=== PATIENT | female | born 1960 | race African-American/Black ===

== ENCOUNTER 2017-04-20 09:34 | Emergency (ER) | payer BC, OTHER ==
[~2017-04-20] VITALS: Ht 157.5 cm; Wt 73.0 kg
[~2017-04-20 09:34] MED LIST: ALBUTEROL SULF8.5 GM INH; ANUSOL-HC25 MG RC; ASPIR 8181 MG ORAL; ATIVAN1 MG ORAL; ATIVAN1 MG PO; BUSPAR10 MG PO; COLACE100 MG PO; IBUPROFEN600 MG ORAL; LABETALOL H5 MG/1 M1 ORAL; LEVOTHYROXINE125 MCG ORAL; LISINOPRIL-HCT1 EACH PO; LISINOPRIL10 MG ORAL; PREDNISONE50 MG PO; REGLAN10 MG ORAL; SYNTHROID125 MCG PO
[2017-04-20 10:39] LABS: APPEARANCE,URINE CLEAR; KETONES,URINE NEGATIVE (NEGATIVE); LEUKOCYTE ESTERASE ,URINE NEGATIVE (NEGATIVE); NITRITE,URINE NEGATIVE (NEGATIVE); PH,URINE 5 (4.5-8.0); PROTEIN,URINE NEGATIVE (NEGATIVE); UROBILINOGEN,URINE NORMAL MG/DL (0.0-1.0)
[2017-04-20 10:49] LABS: BACTERIA,URINE OCCASIONAL /HPF; RBC,URINE 0-2 /HPF (0 - 2); SQUAMOUS EPITHELIAL CELL,UR OCCASIONAL /LPF (NONE/OCC); WBC,URINE 0-2 /HPF (0 - 2)
[2017-04-20] MEDS ORDERED: KEFLEX500 MG ORAL (11:15)
[2017-04-20] MEDS ORDERED: IBUPROFEN600 MG ORAL (11:15)
[2017-04-20 11:37] VITALS: BP 110/79
--- NOTE | 2017-04-20 15:35 | Emergency Room Report ---
History of Present Illness General Chief Complaint: Abdominal Pain Source: Patient Present Illness HPI 56-year-old female presents to ED complaining of lower abdominal pain with cramping. States symptoms started 2 days ago. Pain is a 5/10, nonradiating. Notes dysuria. Denies hematuria. Denies fevers or chills. Denies nausea or vomiting. Denies flank pain. No other aggravating or relieving factors. Denies any associated symptoms Allergies: Coded Allergies: No Known Allergies (Verified Allergy, Unknown, 07/19/10) Patient History Past Medical History: HTN, other Past Surgical History: none Pertinent Family History: none Social History: Denies: alcohol use, drug use, smoking Now: No Immunizations: UTD Reviewed Nursing Documentation: PMH: Agreed, PSxH: Agreed Nursing Documentation-PMH Past Medical History: No History, Except For Hx Cardiac Problems: No - hypothyroidism Hx Hypertension: Yes Hx Pacemaker: No Hx Asthma: No Hx COPD: No Hx Diabetes: No Hx Cancer: No Hx Gastrointestinal Problems: Yes - Hemorrhoid Hx Dialysis: No History Of Psychiatric Problem: No Hx Neurological Problems: No Hx Cerebrovascular Accident: No Hx Seizures: No Review of Systems All Other Systems: negative except mentioned in HPI Physical Exam Vital Signs Date Time Temp Pulse Resp B/P Pulse Ox O2 Delivery O2 Flow Rate FiO2 04/20/17 09:46 97.2 81 16 131/87 97 Room Air Sp02 EP Interpretation: reviewed, normal General Appearance: no apparent distress, alert, GCS 15, non-toxic Head: normocephalic, atraumatic Eyes: bilateral eye PERRL, bilateral eye normal inspection ENT: hearing grossly normal, normal pharynx, no angioedema, normal voice Neck: full range of motion, supple/symm/no masses Respiratory: chest non-tender, lungs clear, normal breath sounds, speaking full sentences Cardiovascular #1: regular rate, rhythm, no edema Cardiovascular #2: 2+ carotid (R), 2+ carotid (L), 2+ radial (R), 2+ radial (L) , 2+ dorsalis pedis (R), 2+ dorsalis pedis (L) Gastrointestinal: normal bowel sounds, non tender, soft, non-distended, no guarding, no rebound Rectal: deferred Genitourinary: normal inspection, no CVA tenderness Musculoskeletal: back normal, gait/station normal, normal range of motion, non- tender Neurologic: alert, oriented x3, responsive, motor strength/tone normal, sensory intact, speech normal Psychiatric: judgement/insight normal, memory normal, mood/affect normal, no suicidal/homicidal ideation Reflexes: 3+ bicep (R), 3+ bicep (L), 3+ tricep (R), 3+ tricep (L), 3+ knee (R) , 3+ knee (L) Skin: normal color, no rash, warm/dry, well hydrated Lymphatic: no adenopathy Medical Decision Making Diagnostic Impression: Primary Impression: UTI (urinary tract infection) Qualified Codes: N39.0 - Urinary tract infection, site not specified ER Course Hospital Course 56-year-old female presents to ED complaining of dysuria with cramping suprapubic pain. Differential diagnoses include: UTI, cystitis, pyelonephritis Clinical course Patient placed on stretcher. After initial history and physical I ordered UA UA + bacteria Diagnosis - UTI Stable and discharged home with prescriptions for Rx Keflex. Instructed to followup with PMD. Return to ED if symptoms recur or worsen Labs Test 04/20/17 10:04 Urine Color Pale yellow Urine Appearance Clear Urine pH 5 (4.5-8.0) Urine Specific [place] 1.015 (1.005-1.035) Urine Protein Negative (NEGATIVE) Urine Glucose (UA) Negative (NEGATIVE) Urine Ketones Negative (NEGATIVE) Urine Occult Blood 1+ (NEGATIVE) Urine Nitrite Negative (NEGATIVE) Urine Bilirubin Negative (NEGATIVE) Urine Urobilinogen Normal MG/DL (0.0-1.0) Urine Leukocyte Esterase Negative (NEGATIVE) Urine RBC 0-2 /HPF (0 - 2) Urine WBC 0-2 /HPF (0 - 2) Urine Squamous Epithelial Cells Occasional /LPF Urine Bacteria Occasional /HPF (NONE) Last Vital Signs Date Time Temp Pulse Resp B/P Pulse Ox O2 Delivery O2 Flow Rate FiO2 04/20/17 11:37 97.2 55 17 110/79 100 Room Air Status: improved Disposition: HOME, SELF-CARE Condition: Stable Scripts Ibuprofen* (MOTRIN*) 600 Mg Tablet 600 MG ORAL Q8H Y for For Pain, #30 TAB 0 Refills Prov: BEAR BRASHER M.D. 04/20/17 Cephalexin* (KEFLEX*) 500 Mg Capsule 500 MG ORAL Q6H, #28 CAP 0 Refills Prov: BEAR BRASHER M.D. 04/20/17 Referrals: [facility] PHYSICIAN (PCP) Patient Instructions: Dysuria BEAR BRASHER M.D. April 20, 2017 15:35
== END 2017-04-20 11:39 | disposition home or self-care (01) ==
LOC: EMR 10:58
DX: N39.0 Urinary tract infection, site not specified (principal); I10 Essential (primary) hypertension
CPT/HCPCS: 81003; 99284

== ENCOUNTER 2017-05-12 21:17 | Emergency (ER) | payer BC ==
[~2017-05-12] VITALS: Ht 157.5 cm; Wt 74.4 kg
[~2017-05-12 21:17] MED LIST changes: +KEFLEX500 MG ORAL
--- NOTE | 2017-05-12 22:01 | Emergency Room Report ---
History of Present Illness General Chief Complaint: Lower Extremity Injury Source: Patient Present Illness HPI Patient presents with complaints of bruising to her right anterior lower leg Patient reports that on they had gone fishing on Saturday she had noticed a bruise Denies any fevers or chills denies any pain denies any expanding of the bruise She feels that the middle area of the bruise has a different color now Denies any swelling Denies any calf pain Allergies: Coded Allergies: No Known Allergies (Verified Allergy, Unknown, 07/19/10) Patient History Past Medical History: see triage record Pertinent Family History: none Reviewed Nursing Documentation: PMH: Agreed, PSxH: Agreed Nursing Documentation-PMH Hx Cardiac Problems: No - hypothyroidism Hx Hypertension: Yes Hx Pacemaker: No Hx Asthma: No Hx COPD: No Hx Diabetes: No Hx Cancer: No Hx Gastrointestinal Problems: Yes - Hemorrhoid Hx Dialysis: No Hx Neurological Problems: No Hx Cerebrovascular Accident: No Hx Seizures: No Review of Systems All Other Systems: negative except mentioned in HPI Physical Exam Vital Signs Date Time Temp Pulse Resp B/P Pulse Ox O2 Delivery O2 Flow Rate FiO2 05/12/17 21:22 97.9 81 16 137/87 97 Room Air Sp02 EP Interpretation: reviewed, normal General Appearance: well appearing, no apparent distress Head: normocephalic, atraumatic Eyes: bilateral eye EOMI, bilateral eye PERRL ENT: hearing grossly normal, normal pharynx, TMs + canals normal, uvula midline Neck: full range of motion, supple, no meningismus, no bony tend Respiratory: lungs clear, normal breath sounds, no rhonchi, no respiratory distress, no retraction, no accessory muscle use Cardiovascular #1: normal peripheral pulses, regular rate, rhythm, no edema, no gallop, no JVD, no murmur Gastrointestinal: normal bowel sounds, non tender, soft, no mass, no organomegaly, non-distended, no guarding, no hernia, no pulsatile mass, no rebound Genitourinary: no CVA tenderness Musculoskeletal: normal inspection Neurologic: oriented x3, responsive, 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 Patient does have operable varicose veins. There is no fluctuance or palpable mass to the hematoma Lymphatic: normal inspection, no adenopathy Medical Decision Making Diagnostic Impression: Primary Impression: hematoma ER Course Several differentials are considered including but not limited to DVT, cellulitis Patient's findings appear to be in line With improving hematoma Is also consideration for, likely varicose vein rupture Patient otherwise stable for close outpatient followup Chest X-Ray Diagnostic Results Chest X-Ray Ordered: No Last Vital Signs Date Time Temp Pulse Resp B/P Pulse Ox O2 Delivery O2 Flow Rate FiO2 05/12/17 21:22 97.9 81 16 137/87 97 Room Air Status: unchanged Disposition: HOME, SELF-CARE Condition: Stable Referrals: NON PHYSICIAN (PCP) Patient Instructions: Hematoma, [id number] Additional Instructions: Patient is provided with the discharge instructions notified to follow up with primary doctor in the next 2-3 days otherwise return to the er with any worsening symptoms. Please note that this report is being documented using DRAGON technology. This can lead to erroneous entry secondary to incorrect interpretation by the dictating instrument. TRISHA SABILLON D.O. May 12, 2017 22:01
[2017-05-12 22:10] VITALS: BP 137/87
== END 2017-05-12 22:10 | disposition home or self-care (01) ==
LOC: EMR 21:47
DX: S80.11XA Contusion of right lower leg, initial encounter (principal); I10 Essential (primary) hypertension; I83.90 Asymptomatic varicose veins of unspecified lower extremity; X58.XXXA Exposure to other specified factors, initial encounter; Y93.9 Activity, unspecified; Y92.9 Unspecified place or not applicable
CPT/HCPCS: 99282

== ENCOUNTER 2017-06-07 22:46 | Emergency (ER) | payer BC ==
[~2017-06-07] VITALS: Ht 157.5 cm; Wt 73.9 kg
[2017-06-07 23:30] VITALS: BP 127/85
[2017-06-07] MEDS ORDERED: ANUSOL-HC25 MG RECTAL (23:51)
--- NOTE | 2017-06-07 23:51 | Emergency Room Report ---
History of Present Illness General Chief Complaint: Gastrointestinal Bleed Source: Patient Present Illness HPI This is a 57-year-old female with history of anxiety and hypertension. Patient presents with high blood pressure and rectal bleeding. This evening she said that her blood pressure with systolic in the 180. She took her metoprolol. She said that whenever her blood pressure is high she felt she needed to have a bowel movement. When she had a bowel movement blood gushed out. She has a history of hemorrhoid and with bleeding before. Usually small. She had a colonoscopy done less than 3 years ago which showed internal and external hemorrhoids. There were 2 polyps which were benign. No pain. [place] better now. She was anxious initially. Allergies: Coded Allergies: No Known Allergies (Verified Allergy, Unknown, 07/19/10) Patient History Past Medical History: see triage record, old chart reviewed, HTN Past Surgical History: other Pertinent Family History: none Social History: Denies: smoking Last Menstrual Period: NOT ANYMORE Now: No Immunizations: other Reviewed Nursing Documentation: PMH: Agreed, PSxH: Agreed Nursing Documentation-PMH Hx Cardiac Problems: No - hypothyroidism Hx Hypertension: Yes Hx Pacemaker: No Hx Asthma: No Hx COPD: No Hx Diabetes: No Hx Dialysis: No Hx Neurological Problems: No Hx Cerebrovascular Accident: No Hx Seizures: No Review of Systems Eye: Denies: blurred vision, eye pain ENT: Denies: ear pain, nose congestion, throat swelling Respiratory: Denies: cough, shortness of breath Cardiovascular: Denies: chest pain, palpitations Gastrointestinal: Denies: abdominal pain, diarrhea, nausea, vomiting Musculoskeletal: Denies: back pain, joint pain Skin: Denies: rash Neurological: Denies: headache, numbness Endocrine: Denies: increased thirst, increased urine Hematologic/Lymphatic: Denies: easy bruising All Other Systems: negative except mentioned in HPI Physical Exam Vital Signs Date Time Temp Pulse Resp B/P Pulse Ox O2 Delivery O2 Flow Rate FiO2 06/07/17 23:07 98.1 75 18 152/109 98 Room Air vitals with HTN Sp02 EP Interpretation: reviewed, normal General Appearance: well appearing, no apparent distress, alert Head: normocephalic, atraumatic Eyes: bilateral eye EOMI, bilateral eye PERRL ENT: hearing grossly normal, normal pharynx Neck: full range of motion, supple, no meningismus Respiratory: chest non-tender, lungs clear, normal breath sounds Cardiovascular #1: regular rate, rhythm, no murmur Gastrointestinal: normal bowel sounds, non tender, no mass, no organomegaly, no bruit, non-distended Rectal: hemorrhoids - bluish dislocation. no thrombosis or active bleeding Musculoskeletal: back normal, gait/station normal, normal range of motion Psychiatric: mood/affect normal Skin: warm/dry Medical Decision Making Diagnostic Impression: Primary Impression: Rectal bleeding Additional Impression: External hemorrhoid, bleeding ER Course Patient presents with bleeding hemorrhoid. I see no evidence of thrombosis. I see no need for excision. Blood pressures normalized now. No evidence of end organ damage. Unlikely to be rectal cancer since she had recent colonoscopy. We'll discharge home. Last Vital Signs Date Time Temp Pulse Resp B/P Pulse Ox O2 Delivery O2 Flow Rate FiO2 06/07/17 23:07 98.1 75 18 152/109 98 Room Air Status: improved Disposition: HOME, SELF-CARE Condition: Stable Scripts Hydrocortisone Acetate* (ANUSOL-HC*) 25 Mg Supp.rect 1 SUPP RECTAL TWICE A DAY, #10 SUPP Prov: SHEN ROMERO M.D. 06/07/17 Additional Instructions: Follow up with your doctor in 7 days. You may need a referral to see a surgeon if continue with bleeding. SHEN ROMERO M.D. Jun 07, 2017 23:51
[2017-06-08] VITALS: BP 101/70
== END 2017-06-08 | disposition home or self-care (01) ==
LOC: EMR 23:46
DX: K64.4 Residual hemorrhoidal skin tags (principal); I10 Essential (primary) hypertension
CPT/HCPCS: 99283

== ENCOUNTER 2017-06-16 22:31 | Emergency (ER) | payer BC ==
[~2017-06-16] VITALS: Ht 165.1 cm; Wt 74.8 kg
[~2017-06-16 22:31] MED LIST changes: +ANUSOL-HC25 MG RECTAL
[2017-06-16 23:45] LABS: BASOPHILS % (AUTO) 1.2 % (0.0-2.0); LYMPHOCYTES % (AUTO) 25.3 % (20.0-45.0); MEAN CORPUSCULAR HEMOGLOBIN 31.7 PG (27.0-31.0); MEAN CORPUSCULAR HGB CONC 35.1 G/DL (32.0-36.0); MEAN CORPUSCULAR VOLUME 90 FL (80-99); MEAN PLATELET VOLUME 6.6 FL (6.5-10.1); MONOCYTES % (AUTO) 9.1 % (1.0-10.0); NEUTROPHILS % (AUTO) 62.4 % (45.0-75.0); PLATELET COUNT 225 K/UL (150-450); RED BLOOD COUNT 4.72 M/UL (4.20-5.40); WHITE BLOOD COUNT 5.1 K/UL (4.8-10.8)
[2017-06-17 00:04] LABS: ALANINE AMINOTRANSFERASE 19 U/L (3-33); ALBUMIN/GLOBULIN RATIO 1.7 (1.0-2.7); ANION GAP 11 (5-15); ASPARTATE AMINO TRANSFERASE 22 U/L (5-40); CALCIUM 9.2 mg/dL (8.6-10.2); CARBON DIOXIDE 26 mEQ/L (20-30); CHLORIDE 103 mEQ/L (98-107); GLOMERULAR FILTRATION RATE > 60 mL/min (>60); HEMOLYSIS 14; SODIUM 140 mEQ/L (135-145); TOTAL PROTEIN 6.4 g/dL (6.6-8.7)
[2017-06-17 00:06] LABS: TROPONIN I < 0.30 ng/mL (<=0.30)
[2017-06-17 00:15] LABS: CKMB 1.6 ng/mL (< 3.8)
[2017-06-17 00:59] VITALS: BP 131/79
[2017-06-17 01:00] VITALS: BP 131/79
--- NOTE | 2017-06-17 01:24 | Emergency Room Report ---
History of Present Illness General Chief Complaint: Headache Source: Patient Present Illness HPI 57-year-old female presents to ED for evaluation. Patient states that she is having a headache which started last night. Pain is frontal, 3/10, throbbing, nonradiating. Patient states whenever her blood pressure is high she has a headache. Patient has history of hypertension and states that her blood pressure is been more elevated than usual recently. Was told by her PMD that her blood pressure remains high after taking her blood pressure medications that she should take a dose of metoprolol. Patient took the metoprolol tonight. States that her blood pressure was initially 170/120 approximately. In triage blood pressure is overall improved. Denies any chest pain or shortness of breath. Denies neck stiffness. Aggravating or leading factors. Denies any other associated symptoms Allergies: Coded Allergies: No Known Allergies (Verified Allergy, Unknown, 07/19/10) Patient History Past Medical History: HTN Past Surgical History: none Pertinent Family History: none Social History: Denies: alcohol use, drug use, smoking Now: No Immunizations: UTD Reviewed Nursing Documentation: PMH: Agreed, PSxH: Agreed Nursing Documentation-PMH Hx Cardiac Problems: No Hx Hypertension: Yes Hx Pacemaker: No Hx Asthma: No Hx COPD: No Hx Diabetes: No Hx Cancer: No Hx Gastrointestinal Problems: No Hx Dialysis: No History Of Psychiatric Problem: No Hx Neurological Problems: No Hx Cerebrovascular Accident: No Hx Seizures: No Review of Systems All Other Systems: negative except mentioned in HPI Physical Exam Vital Signs Date Time Temp Pulse Resp B/P Pulse Ox O2 Delivery O2 Flow Rate FiO2 06/16/17 22:52 97.9 78 16 150/106 98 Room Air Sp02 EP Interpretation: reviewed, normal General Appearance: no apparent distress, alert, GCS 15, non-toxic Head: normocephalic, atraumatic Eyes: bilateral eye PERRL, bilateral eye normal inspection ENT: hearing grossly normal, normal pharynx, no angioedema, normal voice Neck: full range of motion, supple/symm/no masses Respiratory: chest non-tender, lungs clear, normal breath sounds, speaking full sentences Cardiovascular #1: regular rate, rhythm, no edema Cardiovascular #2: 2+ carotid (R), 2+ carotid (L), 2+ radial (R), 2+ radial (L) , 2+ dorsalis pedis (R), 2+ dorsalis pedis (L) Gastrointestinal: normal bowel sounds, non tender, soft, non-distended, no guarding, no rebound Rectal: deferred Genitourinary: normal inspection, no CVA tenderness Musculoskeletal: back normal, gait/station normal, normal range of motion, non- tender Neurologic: alert, oriented x3, responsive, motor strength/tone normal, sensory intact, speech normal Psychiatric: judgement/insight normal, memory normal, mood/affect normal, no suicidal/homicidal ideation Reflexes: 3+ bicep (R), 3+ bicep (L), 3+ tricep (R), 3+ tricep (L), 3+ knee (R) , 3+ knee (L) Skin: normal color, no rash, warm/dry, well hydrated Lymphatic: no adenopathy Medical Decision Making Diagnostic Impression: Primary Impression: Hypertension Qualified Codes: I10 - Essential (primary) hypertension Additional Impression: Headache Qualified Codes: R51 - Headache ER Course Hospital Course 57-year-old female presents ED complaining of elevated BP, c/o headache Differential diagnoses include: hypertensive urgency, hypertensive emergency, arrythmia, AZ/ACS Clinical course Patient placed on stretcher. After initial history and physical I ordered labs , EKG, chest x-ray. labs reviewed- all electrolytes normal, troponins negative, no leukocytosis, hemoglobin/hematocrit stable EKG - sinus bradycardia, no acute changes interpreted by me CT Head - no acute process Upon reassessment patient's BP has reduced on its own without intervention. I. I feel this is a highly complex case requiring extensive working including EKG/Rhythm strip, Xray/CT/US, Blood/urine lab work, repeat exams while in ED, and administration of strong opiates/narcotics for pain control, admission to hospital or close patient follow up. Diagnosis - hypertension, headache Stable and discharged to home. take meds as directed. Instructed to followup with PMD. Return to ED if symptoms recur or worsen Labs Test 06/16/17 23:35 White Blood Count 5.1 K/UL (4.8-10.8) Red Blood Count 4.72 M/UL (4.20-5.40) Hemoglobin 14.9 G/DL (12.0-16.0) Hematocrit 42.6 % (37.0-47.0) Mean Corpuscular Volume 90 FL (80-99) Mean Corpuscular Hemoglobin 31.7 PG (27.0-31.0) Mean Corpuscular Hemoglobin Concent 35.1 G/DL (32.0-36.0) Red Cell Distribution Width 11.0 % (11.6-14.8) Platelet Count 225 K/UL (150-450) Mean Platelet Volume 6.6 FL (6.5-10.1) Neutrophils (%) (Auto) 62.4 % (45.0-75.0) Lymphocytes (%) (Auto) 25.3 % (20.0-45.0) Monocytes (%) (Auto) 9.1 % (1.0-10.0) Eosinophils (%) (Auto) 2.0 % (0.0-3.0) Basophils (%) (Auto) 1.2 % (0.0-2.0) Sodium Level 140 mEQ/L (135-145) Potassium Level 4.0 mEQ/L (3.4-4.9) Chloride Level 103 mEQ/L (98-107) Carbon Dioxide Level 26 mEQ/L (20-30) Anion Gap 11 (5-15) Blood Urea Nitrogen 19 mg/dL (7-23) Creatinine 1.0 mg/dL (0.5-0.9) Estimat Glomerular Filtration Rate > 60 mL/min (>60) Glucose Level 109 mg/dL (74-106) Calcium Level 9.2 mg/dL (8.6-10.2) Total Bilirubin 0.2 mg/dL (0.0-1.2) Aspartate Amino Transf (AST/SGOT) 22 U/L (5-40) Alanine Aminotransferase (ALT/SGPT) 19 U/L (3-33) Alkaline Phosphatase 82 U/L (35-104) Total Creatine Kinase 81 U/L (26-140) Creatine Kinase MB 1.6 ng/mL (< 3.8) Creatine Kinase MB Relative Index 1.9 Troponin I < 0.30 ng/mL (<=0.30) Total Protein 6.4 g/dL (6.6-8.7) Albumin 4.1 g/dL (3.5-5.2) Globulin 2.3 g/dL Albumin/Globulin Ratio 1.7 (1.0-2.7) EKG Diagnostic Results Rate: bradycardiac Rhythm: NSR ST Segments: no acute changes ASA given to the pt in ED: No Rhythm Strip Diag. Results EP Interpretation: yes Rhythm: NSR, no PVC's, no ectopy CT/MRI/US Diagnostic Results CT/MRI/US Diagnostic Results : Imaging Test Ordered: CT Head Impression no acute process Last Vital Signs Date Time Temp Pulse Resp B/P Pulse Ox O2 Delivery O2 Flow Rate FiO2 06/17/17 01:00 97.9 79 16 131/79 98 Room Air Status: improved Disposition: HOME, SELF-CARE Condition: Stable Patient Instructions: Managing Your High Blood Pressure BEAR BRASHER M.D. Jun 17, 2017 01:24
--- NOTE | 2017-06-17 09:57 | Diagnostic Imaging Report ---
Indication: Headache Technique: Contiguous 5 mm thick transaxial imaging of the head obtained in a Siemens Sensation [address] scanner. Soft tissue and bone windows generated. Total Dose length Product (DLP): [address] Dose Index Volume (CTDIvol): 70.38 mGy Comparison: 07/21/11 Findings: The size and configuration of the cortical sulci, basal cisterns, and ventricles are within normal limits for age. There is no mass effect, midline shift, or edema identified. There is no evidence of acute hemorrhage or abnormal intra-axial or extra-axial fluid collections. The bones and soft tissues are unremarkable. Impression: No mass effect, edema or acute bleed. The CT scanner at [facility] is accredited by the [employer] and the scans are performed using dose optimization techniques as appropriate to a performed exam including Automatic Exposure control.
--- NOTE | 2017-06-19 08:40 | Cardiology Report ---
APPROVED REPORT EKG Measurement Heart [id number] Sinus bradycardia Otherwise normal ECG
== END 2017-06-17 01:00 | disposition home or self-care (01) ==
LOC: EMR 23:04
DX: R51 Headache (principal); I10 Essential (primary) hypertension
CPT/HCPCS: 36415; 70450; 80053; 82550; 82553; 84484; 85025; 93005; 96374; 99284; J7040

== ENCOUNTER 2017-11-24 14:44 | Emergency (ER) | payer BC ==
[~2017-11-24] VITALS: Ht 157.5 cm; Wt 71.2 kg
[2017-11-24] MEDS ORDERED: Norco 5mg/325mg tab ORAL ONE (16:00)
[2017-11-24] MEDS ORDERED: IBUPROFEN600 MG ORAL (16:21)
[2017-11-24] MEDS ORDERED: CLINDAMYCIN HC300 MG ORAL (16:21)
--- NOTE | 2017-11-24 16:21 | Emergency Room Report ---
History of Present Illness General Chief Complaint: Pain Source: Patient Present Illness HPI 57 Yo Female presents to the ED c/o pain, swelling, and erythema of RMF x 3 days after having acrylic nails placed. pt. immediately removed acrylic nail from affected finger the following day however symptoms continue to progress. denies finger pad tenderness, denies trauma or fall. Denies CP, Palpitations, LOC, AMS, dizziness, Changes in Vision, Sensation, paresthesias, or a sudden severe headache. Allergies: Coded Allergies: No Known Allergies (Verified Allergy, Unknown, 07/19/10) Patient History Past Medical History: see triage record Past Surgical History: none Pertinent Family History: none Immunizations: UTD Reviewed Nursing Documentation: PMH: Agreed, PSxH: Agreed Nursing Documentation-PMH Hx Cardiac Problems: No Hx Hypertension: Yes Hx Pacemaker: No Hx Asthma: No Hx COPD: No Hx Cancer: No Hx Gastrointestinal Problems: No Hx Dialysis: No Hx Neurological Problems: No Hx Cerebrovascular Accident: No Hx Seizures: No Review of Systems All Other Systems: negative except mentioned in HPI Physical Exam Vital Signs Date Time Temp Pulse Resp B/P (MAP) Pulse Ox O2 Delivery O2 Flow Rate FiO2 11/24/17 15:11 98.1 67 16 118/73 100 Room Air Sp02 EP Interpretation: reviewed, normal General Appearance: no apparent distress, alert, GCS 15, non-toxic Head: normocephalic, atraumatic Eyes: bilateral eye normal inspection, bilateral eye PERRL ENT: hearing grossly normal, normal voice Neck: full range of motion Respiratory: chest non-tender, lungs clear, normal breath sounds, speaking full sentences Cardiovascular #1: regular rate, rhythm, normal capillary refill Musculoskeletal: back normal, gait/station normal, normal range of motion, tender - TTP with erythema and increased temperature to palpation to the cuticle line of the RMF, swelling noted , no finger pad tenderness, FROM of finger. Neurologic: alert, oriented x3, responsive, motor strength/tone normal, sensory intact, speech normal Skin: no rash, warm/dry, well hydrated, other - erythema and increased temperature to palpation to the cuticle line of the RMF, swelling noted Procedures Incision and Drainage Incision and Drainage : Consent: Verbal Site: RMF Blade Size: 25g needle I & D Procedure: betadine prep, sterile drapes applied Wound Location: upper extremity - RMF Wound's Depth, Shape: superficial Wound Length (cm): 0 Wound Explored: contaminated - purulent drainage is expressed ( mild) Splint Applied?: No Sling Applied?: No Patient Tolerated: Well Complications: None Medical Decision Making PA Attestation Dr. Gomez is my supervising Physician whom patient management has been discussed with. Diagnostic Impression: Primary Impression: Paronychia of finger Qualified Codes: L03.011 - Cellulitis of right finger Additional Impression: Cellulitis Qualified Codes: L03.113 - Cellulitis of right upper limb ER Course 57 Yo Female presents to the ED c/o pain, swelling, and erythema of RMF x 3 days after having acrylic nails placed. pt. immediately removed acrylic nail from affected finger the following day however symptoms continue to progress. denies finger pad tenderness, denies trauma or fall. Denies CP, Palpitations, LOC, AMS, dizziness, Changes in Vision, Sensation, paresthesias, or a sudden severe headache. Pt. presents to the ED c/o pain, swelling, and erythema of RMF x 3 days. Ddx considered but are not limited to cellulitis, paronychia, eponychia, ingrown toe nail, fracture, d/L, gout Vital signs: are WNL, pt. is afebrile H&PE are most consistent with left middle finger paronychia ORDERS: none required at this time, the diagnosis is clinical ED INTERVENTIONS: - verbal consent was received . - lesion was cleaned with betadine prep. - Small incision using a sterile 25g needle to drain the paronychia. pt. tolerated well without complication. - sterile band-aid was then applied afterward. - will d/c pt. with PO abx. DISCHARGE: At this time pt. is stable for d/c to home. Will provide printed patient care instructions, and any necessary prescriptions. Care plan and follow up instructions have been discussed with the patient prior to discharge. Last Vital Signs Date Time Temp Pulse Resp B/P (MAP) Pulse Ox O2 Delivery O2 Flow Rate FiO2 11/24/17 15:11 98.1 67 16 118/73 100 Room Air Disposition: HOME, SELF-CARE Condition: Stable Scripts Bacitracin/Polymyxin B Sulfate (BACITRACIN-POLYMYXIN OINTMENT) 28.35 Gm Oint...g. 1 APPLIC TP BID, #28.3 GM Prov: Leah Cardoso 11/24/17 Ibuprofen* (MOTRIN*) 600 Mg Tablet 600 MG ORAL THREE TIMES A DAY, #30 TAB 0 Refills Prov: Leah Cardoso 11/24/17 Clindamycin Hcl (CLINDAMYCIN HCL) 300 Mg Capsule 300 MG ORAL FOUR TIMES A DAY for 7 Days, #28 CAP Prov: Leah Cardoso 11/24/17 Departure Forms: Return to Work Return to Work Date: Nov 27, 2017 Work Restrictions: None Return to Full Activity: Nov 27, 2017 Patient Instructions: Cellulitis, [id number], Paronychia Additional Instructions: Take medications as directed. Warm water soaks in salt water 6 times daily for 3 days. Follow up with a Primary Care Provider in 3-5 days, even if your symptoms have resolved. --Please review list of primary care clinics, if you do not already have a primary care provider Return sooner to ED if new symptoms occur, or current symptoms become worse. - Please note that this Emergency Department Report was dictated using [employer] technology software, occasionally this can lead to erroneous entry secondary to interpretation by the dictation equipment. Leah Cardoso Nov 24, 2017 16:21
[2017-11-24] MEDS ORDERED: BACITRACIN-P28.35 GM TP (16:22)
[2017-11-24 16:27] VITALS: BP 118/73
[2017-11-24 16:28] VITALS: BP 118/73
== END 2017-11-24 16:30 | disposition home or self-care (01) ==
LOC: EMR 15:42
DX: L03.011 Cellulitis of right finger (principal); L03.113 Cellulitis of right upper limb; I10 Essential (primary) hypertension
CPT/HCPCS: 10060; 99283

== ENCOUNTER 2018-06-02 14:59 | Emergency (ER) | payer BC ==
[~2018-06-02] VITALS: Ht 157.5 cm; Wt 68.9 kg
[~2018-06-02 14:59] MED LIST changes: +BACITRACIN-P28.35 GM TP; +CLINDAMYCIN HC300 MG ORAL
--- NOTE | 2018-06-02 15:37 | Emergency Room Report ---
History of Present Illness General Chief Complaint: Abdominal Pain Source: Patient, Medical Record Present Illness HPI 57-year-old female patient presents ER complaining of abdominal pain with nausea and vomiting 1 day. Reports that she woke up this morning with pain in her stomach and is vomited 3 times. Denies eating prior to throwing up. Reports she has been constipated for the past 3 days, states that she was able to have a small "pimple" during defecation this morning. Denies dysuria, hematuria. Denies history of DE. Reports history of hypothyroidism, currently taking medications. Denies history of GERD or acid reflux. Denies radiation of pain to back. Denies recent travel. denies contacts with similar symptoms. 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 Allergies: Coded Allergies: No Known Allergies (Verified Allergy, Unknown, 07/19/10) Patient History Past Medical History: see triage record Reviewed Nursing Documentation: PMH: Agreed; PSxH: Agreed Nursing Documentation-PMH Past Medical History: No History, Except For Hx Cardiac Problems: No Hx Hypertension: Yes Hx Pacemaker: No Hx Asthma: No Hx COPD: No Hx Cancer: No Hx Gastrointestinal Problems: No Hx Dialysis: No Hx Neurological Problems: No Hx Cerebrovascular Accident: No Hx Seizures: No Review of Systems All Other Systems: negative except mentioned in HPI Physical Exam Vital Signs Date Time Temp Pulse Resp B/P (MAP) Pulse Ox O2 Delivery O2 Flow Rate FiO2 06/02/18 15:10 98.7 101 18 132/92 96 Room Air 98.8 Sp02 EP Interpretation: reviewed, normal General Appearance: well appearing, no apparent distress, alert, GCS 15, non- toxic Head: normocephalic, atraumatic Eyes: bilateral eye normal inspection, bilateral eye PERRL ENT: hearing grossly normal, normal pharynx, no angioedema, normal voice, uvula midline, moist mucus membranes Neck: full range of motion Respiratory: lungs clear, normal breath sounds, no rhonchi, no respiratory distress, no accessory muscle use, no wheezing, speaking full sentences Cardiovascular #1: regular rate, rhythm, no edema Gastrointestinal: soft, no mass, non-distended, no guarding, no rebound, tenderness - epigastric, other - negative Rovsing, negative Mills, negative obturator Genitourinary: no CVA tenderness Musculoskeletal: back normal, digits/nails normal, gait/station normal, normal range of motion, non-tender Neurologic: alert, oriented x3, responsive, motor strength/tone normal, sensory intact Skin: no rash Medical Decision Making PA Attestation Dr. Cunningham is my supervising Physician whom patient management has been discussed with. Diagnostic Impression: Primary Impression: Vomiting Additional Impression: Constipation ER Course Pt. presents to the ED c/o abdominal pain and vomiting. Ddx considered but are not limited to UTI, cholelithiasis, cholecystitis, pancreatitis, appendicitis, diverticulitis, constipation, DE. Begin abdominal pain workup. Provided patient with pain medication. Vital signs: are WNL, pt. is afebrile ORDERS: CBC, CMP, Lipase, UA, KUB xray, Zofran, Pepcid and pain medication. ER COURSE: negative Mills, negative Rovsing, negative obturator, low suspicion for cholecystitis or appendicitis, do not believe patient requires ultrasound or CT scan of abdomen at this time. Will order a KUB x-ray. provide patient with Pepcid, Zofran, GI cocktail. CBC and CMP unremarkable Lipase WNL Troponin negative, low suspicion for cardiac pathology. EKG shows nonspecific T wave flattening, unchanged since previous visit. discuss with PCP and need for further referral and treatment at that time. KUB xray negative no recent travel outside the [place], no contacts with similar symptoms, no blood in vomit, no diarrhea, does not require antibiotic treatments at this time. Likely viral etiology of symptoms. Stay hydrated. Follow up at scheduled appointment on the for further treatment and evaluation with GI specialist. Symptoms may be related to reflux. Will provide Pepcid to take for possible reflux symptoms. pain may also be related to constipation, will provide treatment with Colace for patient. Drink plenty of fluids. Patient reports relief of pain symptoms with medication. patient able tolerate by PO fluids while in the ER. Patient okay for discharge home. DISCHARGE: Rx provided for Pepcid Rx provided for Colace At this time pt. is stable for d/c to home. Patient resting comfortably, in no acute distress, nontoxic appearing, talking without difficulty. Rx provided to patient. Patient to take medications as instructed Will provide with patient care instructions and any necessary prescriptions. Care plan and follow-up instructions provided. Patient instructed to follow-up with primary care provider in 3 - 5 days. Patient questions asked and answered. Patient reports understanding and agreement to treatment plan. ER precautions given. Patient instructed to return to ER immediately for any new or worsening of symptoms including but not limited to increasing SOB, persistent fever, worsening of pain symptoms, intractable vomiting, blood in stool, urine, and/or emesis. - Please note that this Emergency Department Report was dictated using [employer] technology software, occasionally this can lead to erroneous entry secondary to interpretation by the dictation equipment. following discharge from ER, patient contacted ER to discuss fever symptoms with me. Reports that she had a 101 fever at home. Informed patient that she was afebrile during entire stay ER, labs showed no signs of infection. Informed patient to return to ER for evaluation of symptoms as needed. Take Tylenol for fever symptoms. Drink plenty of fluids and stay hydrated. Symptomatic relief. Labs Test 06/02/18 16:00 White Blood Count 6.6 K/UL (4.8-10.8) Red Blood Count 5.30 M/UL (4.20-5.40) Hemoglobin 15.7 G/DL (12.0-16.0) Hematocrit 44.6 % (37.0-47.0) Mean Corpuscular Volume 84 FL (80-99) Mean Corpuscular Hemoglobin 29.7 PG (27.0-31.0) Mean Corpuscular Hemoglobin Concent 35.2 G/DL (32.0-36.0) Red Cell Distribution Width 11.3 % (11.6-14.8) Platelet Count 200 K/UL (150-450) Mean Platelet Volume 6.3 FL (6.5-10.1) Neutrophils (%) (Auto) % (45.0-75.0) Lymphocytes (%) (Auto) % (20.0-45.0) Monocytes (%) (Auto) % (1.0-10.0) Eosinophils (%) (Auto) % (0.0-3.0) Basophils (%) (Auto) % (0.0-2.0) Urine Color Yellow Urine Appearance Clear Urine pH 6 (4.5-8.0) Urine Specific [place] 1.015 (1.005-1.035) Urine Protein Negative (NEGATIVE) Urine Glucose (UA) Negative (NEGATIVE) Urine Ketones Negative (NEGATIVE) Urine Occult Blood 1+ (NEGATIVE) Urine Nitrite Negative (NEGATIVE) Urine Bilirubin Negative (NEGATIVE) Urine Urobilinogen Normal MG/DL (0.0-1.0) Urine Leukocyte Esterase 1+ (NEGATIVE) Urine RBC 0-2 /HPF (0 - 2) Urine WBC 2-4 /HPF (0 - 2) Urine Squamous Epithelial Cells Few /LPF (NONE/OCC) Urine Bacteria Few /HPF (NONE) Sodium Level 139 MMOL/L (136-145) Potassium Level 3.5 MMOL/L (3.5-5.1) Chloride Level 105 MMOL/L (98-107) Carbon Dioxide Level 27 MMOL/L (21-32) Anion Gap 8 mmol/L (5-15) Blood Urea Nitrogen 20 mg/dL (7-18) Creatinine 0.8 MG/DL (0.55-1.30) Estimat Glomerular Filtration Rate > 60 mL/min (>60) Glucose Level 97 MG/DL (74-106) Calcium Level 9.1 MG/DL (8.5-10.1) Total Bilirubin 0.6 MG/DL (0.2-1.0) Aspartate Amino Transf (AST/SGOT) 26 U/L (15-37) Alanine Aminotransferase (ALT/SGPT) 46 U/L (12-78) Alkaline Phosphatase 108 U/L (46-116) Troponin I 0.000 ng/mL (0.000-0.056) Total Protein 7.5 G/DL (6.4-8.2) Albumin 4.1 G/DL (3.4-5.0) Globulin 3.4 g/dL Albumin/Globulin Ratio 1.2 (1.0-2.7) Lipase 89 U/L (73-393) EKG Diagnostic Results Rate: normal Rhythm: NSR ST Segments: no acute changes ASA given to the pt in ED: No PA Scribe Text Eduardo Lockhart PA-C Rhythm Strip Diag. Results EP Interpretation: yes Rate: 78 Rhythm: NSR, no PVC's, no ectopy PA Scribe Darinel Lockhart PA-C Other X-Ray Diagnostic Results Other X-Ray Diagnostic Results : X-Ray ordered: KUB xray # of Views/Limited Vs Complete: 2 View Indication: Pain EP Interpretation: Yes PA Xray: Interpretation reviewed, by supervising MD, and agrees with findings. Interpretation: no dislocation, no soft tissue swelling, no fractures, nonspecific bowel gas Impression: No acute disease CLEVE Simmons Text Eduardo Lockhart PA-C Last Vital Signs Date Time Temp Pulse Resp B/P (MAP) Pulse Ox O2 Delivery O2 Flow Rate FiO2 06/02/18 15:10 98.7 101 18 132/92 96 Room Air 98.8 Disposition: HOME, SELF-CARE Condition: Stable Scripts Docusate Sodium* (COLACE*) 100 Mg Capsule 100 MG ORAL TWICE A DAY, #10 CAP Prov: Guille Lockhart 06/02/18 Famotidine (PEPCID AC) 20 Mg Tablet 20 MG PO DAILY, #15 TAB Prov: Guille Lockhart 06/02/18 Patient Instructions: Constipation, Adult, [id number], Gastroesophageal Reflux Disease, Adult, Nausea and Vomiting, Adult, [id number] Additional Instructions: Followup with primary care provider in 3 -5 days for further treatment and referral to GI. Followup with PCP for cardiac workup as needed, discuss EKG. Non specific T wave flattening, unchanged since previous visit. Keep food journal of foods eaten and times of symptom onset. Take medications as directed. Patient questions asked and answered. ER precautions given, patient instructed to return to ER immediately for any new or worsening of symptoms including but not limited to chest pain, SOB, abdominal pain, blood in vomit. Drink fluids as tolerated to prevent dehydration. Take Tylenol OTC for pain, easier on stomach. Avoid spicy foods, avoid dairy. Do not eat late night meals. Elevate head of bed when sleeping. Guille Lockhart Jun 02, 2018 15:37
[2018-06-02] MEDS ORDERED: Ketorolac 30mg Inj IV ONE (15:45)
[2018-06-02] MEDS ORDERED: Dicyclomine HCl 10mg/5ml oral soln ORAL ONE (15:45)
[2018-06-02] MEDS ORDERED: Lidocaine 2% Visc 15ml soln ORAL ONE (15:45)
[2018-06-02] MEDS ORDERED: Mylanta II UD 30ml ORAL ONE (15:45)
--- NOTE | 2018-06-02 16:25 | Diagnostic Imaging Report ---
Indication: Abdominal pain Comparison: None Single view of the abdomen obtained Findings: Bowel gas pattern is nonspecific. No mass, ectopic calcifications, or abnormal gas collections are identified. The bones are unremarkable. Impression: No acute findings
[2018-06-02 16:28] LABS: APPEARANCE,URINE CLEAR; BILIRUBIN, URINE NEGATIVE (NEGATIVE); GLUCOSE, URINE (UA) NEGATIVE (NEGATIVE); HEMATOCRIT 44.6 % (37.0-47.0); HEMOGLOBIN 15.7 G/DL (12.0-16.0); KETONES,URINE NEGATIVE (NEGATIVE); LEUKOCYTE ESTERASE ,URINE 1+ (NEGATIVE); MEAN CORPUSCULAR VOLUME 84 FL (80-99); NITRITE,URINE NEGATIVE (NEGATIVE); PH,URINE 6 (4.5-8.0); PLATELET COUNT 200 K/UL (150-450); PROTEIN,URINE NEGATIVE (NEGATIVE); RED CELL DISTRIBUTION WIDTH 11.3 % (11.6-14.8); UROBILINOGEN,URINE NORMAL MG/DL (0.0-1.0); WHITE BLOOD COUNT 6.6 K/UL (4.8-10.8)
[2018-06-02 16:31] LABS: COLOR,URINE YELLOW
[2018-06-02 16:34] LABS: ANION GAP 8 mmol/L (5-15); BLOOD UREA NITROGEN 20 mg/dL (7-18); CALCIUM 9.1 MG/DL (8.5-10.1); CARBON DIOXIDE 27 MMOL/L (21-32); CHLORIDE 105 MMOL/L (98-107); CREATININE 0.8 MG/DL (0.55-1.30); POTASSIUM 3.5 MMOL/L (3.5-5.1); SODIUM 139 MMOL/L (136-145)
[2018-06-02 16:38] LABS: ALANINE AMINOTRANSFERASE 46 U/L (12-78); ALBUMIN 4.1 G/DL (3.4-5.0); ALBUMIN/GLOBULIN RATIO 1.2 (1.0-2.7); ALKALINE PHOSPHATASE 108 U/L (46-116); ASPARTATE AMINO TRANSFERASE 26 U/L (15-37); BILIRUBIN,TOTAL 0.6 MG/DL (0.2-1.0)
[2018-06-02 16:44] VITALS: BP 132/92
[2018-06-02] MEDS ORDERED: PEPCID AC20 M2 PO (17:30)
[2018-06-02] MEDS ORDERED: COLACE100 MG ORAL (17:30)
[2018-06-02 17:40] VITALS: BP 132/92
--- NOTE | 2018-06-04 00:36 | Cardiology Report ---
APPROVED REPORT EKG Measurement Heart [id number] Normal sinus rhythm Nonspecific ST abnormality Abnormal ECG
== END 2018-06-02 17:47 | disposition home or self-care (01) ==
LOC: EMR 16:11
DX: R11.10 Vomiting, unspecified (principal); K59.00 Constipation, unspecified; I10 Essential (primary) hypertension; E03.9 Hypothyroidism, unspecified; K58.9 Irritable bowel syndrome, unspecified
CPT/HCPCS: 36415; 74018; 80053; 81003; 83690; 84484; 85007; 85025; 93005; 96374; 96375; 99284; J2405

== ENCOUNTER 2018-07-22 23:27 | Emergency (ER) | payer BC ==
[~2018-07-22] VITALS: Ht 157.5 cm; Wt 70.8 kg
[~2018-07-22 23:27] MED LIST changes: +COLACE100 MG ORAL; +PEPCID AC20 M2 PO
[2018-07-22] MEDS ORDERED: SYNTHROID50 MCG ORAL (23:43)
[2018-07-22] MEDS ORDERED: METOPROLOL TART50 MG ORAL (23:43)
[2018-07-22] MEDS ORDERED: LOSARTAN POTASS50 MG ORAL (23:43)
--- NOTE | 2018-07-23 00:05 | Emergency Room Report ---
History of Present Illness General Chief Complaint: Hypertension Source: Patient Present Illness [facility] This is a 58-year-old female with a history of high blood pressure. She presents with chief complaint of high blood pressure. She said her blood pressure at home was been running systolic in the 160s. She is taking Cozaar milligram twice a day. 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 Denies any fever chills but denies any headache. Denies any chest pain or shortness of breath. Allergies: Coded Allergies: No Known Allergies (Verified Allergy, Unknown, 07/19/10) Patient History Past Medical History: see triage record, old chart reviewed, HTN Past Surgical History: other Pertinent Family History: none Social History: Denies: smoking Now: No Immunizations: other Reviewed Nursing Documentation: PMH: Agreed; PSxH: Agreed Nursing Documentation-PMH Hx Cardiac Problems: No Hx Hypertension: Yes Hx Pacemaker: No Hx Asthma: No Hx COPD: No Hx Cancer: No Hx Gastrointestinal Problems: No Hx Dialysis: No Hx Neurological Problems: No Hx Cerebrovascular Accident: No Hx Seizures: No Review of Systems Eye: Denies: eye pain, blurred vision ENT: Denies: ear pain, nose congestion, throat swelling Respiratory: Denies: cough, shortness of breath Cardiovascular: Denies: chest pain, palpitations Gastrointestinal: Denies: abdominal pain, diarrhea, nausea, vomiting Musculoskeletal: Denies: back pain, joint pain Skin: Denies: rash Neurological: Denies: headache, numbness Endocrine: Denies: increased thirst, increased urine Hematologic/Lymphatic: Denies: easy bruising All Other Systems: negative except mentioned in HPI Physical Exam Vital Signs Date Time Temp Pulse Resp B/P (MAP) Pulse Ox O2 Delivery O2 Flow Rate FiO2 07/22/18 23:35 98.2 88 16 177/115 96 Room Air 98.2 vitals with high blood pressure Sp02 EP Interpretation: reviewed, normal General Appearance: well appearing, no apparent distress, alert Head: normocephalic, atraumatic Eyes: bilateral eye PERRL, bilateral eye EOMI ENT: hearing grossly normal, normal pharynx Neck: full range of motion, supple, no meningismus Respiratory: chest non-tender, lungs clear, normal breath sounds Cardiovascular #1: regular rate, rhythm, no murmur Gastrointestinal: normal bowel sounds, non tender, no mass, no organomegaly, no bruit, non-distended Musculoskeletal: back normal, gait/station normal, normal range of motion Psychiatric: mood/affect normal Skin: warm/dry Medical Decision Making Diagnostic Impression: Primary Impression: Hypertension Qualified Codes: I10 - Essential (primary) hypertension ER Course She presents with hypertension. No evidence of endorgan damage. Blood pressure normalized now. We'll discharge home. We'll add hydrochlorothiazide to her regimen. Last Vital Signs Date Time Temp Pulse Resp B/P (MAP) Pulse Ox O2 Delivery O2 Flow Rate FiO2 07/22/18 23:35 98.2 88 16 177/115 96 Room Air 98.2 Status: improved Disposition: HOME, SELF-CARE Condition: Stable Scripts Hydrochlorothiazide* (HYDROCHLOROTHIAZIDE*) 25 Mg Tablet 25 MG ORAL DAILY, #30 TAB Prov: SHEN ROMERO M.D. 07/23/18 Additional Instructions: Follow-up your doctor in 7 days. Return if worse. SHEN ROMERO M.D. Jul 23, 2018 00:05
[2018-07-23 00:12] VITALS: BP 156/98
[2018-07-23 01:01] LABS: APPEARANCE,URINE CLEAR; BILIRUBIN, URINE NEGATIVE (NEGATIVE); COLOR,URINE PALE YELLOW; GLUCOSE, URINE (UA) NEGATIVE (NEGATIVE); HEMATOCRIT 44.5 % (37.0-47.0); HEMOGLOBIN 15.3 G/DL (12.0-16.0); KETONES,URINE NEGATIVE (NEGATIVE); LEUKOCYTE ESTERASE ,URINE NEGATIVE (NEGATIVE); LYMPHOCYTES % (AUTO) 21.2 % (20.0-45.0); MEAN CORPUSCULAR VOLUME 86 FL (80-99); NEUTROPHILS % (AUTO) 68.7 % (45.0-75.0); NITRITE,URINE NEGATIVE (NEGATIVE); PH,URINE 6.5 (4.5-8.0); PLATELET COUNT 247 K/UL (150-450); PROTEIN,URINE NEGATIVE (NEGATIVE); RED CELL DISTRIBUTION WIDTH 11.2 % (11.6-14.8); UROBILINOGEN,URINE NORMAL MG/DL (0.0-1.0); WHITE BLOOD COUNT 6.5 K/UL (4.8-10.8)
[2018-07-23 01:03] LABS: ANION GAP 8 mmol/L (5-15); BLOOD UREA NITROGEN 18 mg/dL (7-18); CARBON DIOXIDE 29 MMOL/L (21-32); CHLORIDE 105 MMOL/L (98-107); POTASSIUM 3.6 MMOL/L (3.5-5.1); SODIUM 142 MMOL/L (136-145)
[2018-07-23] MEDS ORDERED: HYDROCHLOROTHIA25 MG ORAL (01:28)
[2018-07-23 01:38] VITALS: BP 156/98
== END 2018-07-23 01:39 | disposition home or self-care (01) ==
LOC: EMR 23:45
DX: I10 Essential (primary) hypertension (principal)
CPT/HCPCS: 36415; 80048; 81001; 85025; 99283

== ENCOUNTER 2019-09-10 20:06 | Emergency (ER) | payer BC ==
[~2019-09-10] VITALS: Ht 157.5 cm; Wt 73.5 kg
[~2019-09-10 20:06] MED LIST changes: +ACETAMINOPHEN-1 EAC1 ORAL; +HYDROCHLOROTHIA25 MG ORAL; +LOSARTAN POTASS50 MG ORAL; +METOPROLOL TART50 MG ORAL; +SYNTHROID50 MCG ORAL
--- NOTE | 2019-09-10 20:16 | NUR ---
ED Nurse Note: Patient nursed in room 1. Complaining of headache and high blood pressure. Currently under review.
[2019-09-10] MEDS ORDERED: AMLODIPINE BESY10 MG ORAL (20:22)
[2019-09-10 20:30] VITALS: BP 146/78
[2019-09-10] MEDS ORDERED: Metoclopramide 10mg/2ml Inj IVP ONE (20:45)
[2019-09-10] MEDS ORDERED: DiphenhydrAMINE 50mg/ml Inj IVP ONE (20:45)
--- NOTE | 2019-09-10 20:46 | NUR ---
ED Nurse Note: Patiernty blood pressure improved. informed pre admin of medications. Maggie LEWIS review. Medication missed as per instructions. Benadryl and reglan given as prescribed.
--- NOTE | 2019-09-10 20:46 | NUR ---
ED Nurse Note: Benadryl 0.5 ml waste witnessed by RN Blaise Apodaca.
--- NOTE | 2019-09-10 21:15 | Emergency Room Report ---
History of Present Illness General Chief Complaint: Hypertension Source: Patient Present Illness HPI 59-year-old female history of hypertension, hypothyroidism on synthyroid, has an appointment with her kineseologist the week of the , patient had a measured blood pressure of 170 at home she grew concerned, she had no chest pain or shortness of breath no headache, her blood pressure is aggravated by stress alleviated by medication severity was mild, symptoms were constant, patient denies any visual changes, patient is very adamant about receiving labs. Allergies: Coded Allergies: No Known Allergies (Verified Allergy, Unknown, 07/19/10) Patient History Past Medical History: see triage record Now: No Reviewed Nursing Documentation: PMH: Agreed; PSxH: Agreed Nursing Documentation-PMH Past Medical History: No History, Except For Hx Cardiac Problems: No Hx Hypertension: Yes Hx Pacemaker: No Hx Asthma: No Hx COPD: No Hx Cancer: No Hx Gastrointestinal Problems: No Hx Dialysis: No Hx Neurological Problems: No Hx Cerebrovascular Accident: No Hx Seizures: No Review of Systems All Other Systems: negative except mentioned in HPI Physical Exam Vital Signs Date Time Temp Pulse Resp B/P (MAP) Pulse Ox O2 Delivery O2 Flow Rate FiO2 09/10/19 20:16 98.2 71 17 143/91 (108) 99 Room Air Sp02 EP Interpretation: reviewed, normal General Appearance: well appearing, no apparent distress, alert Head: normocephalic, atraumatic Eyes: bilateral eye PERRL, bilateral eye EOMI ENT: uvula midline, moist mucus membranes Neck: supple, thyroid normal, supple/symm/no masses Respiratory: lungs clear, no respiratory distress, no retraction, no accessory muscle use Cardiovascular #1: normal peripheral pulses, regular rate, rhythm, no edema, no gallop, no murmur Gastrointestinal: non tender, soft, no guarding, no rebound Musculoskeletal: normal inspection Neurologic: alert, oriented x3 Psychiatric: mood/affect normal Skin: no rash, warm/dry Medical Decision Making Diagnostic Impression: Primary Impression: Hypertension Qualified Codes: I10 - Essential (primary) hypertension ER Course 59-year-old female presents with asymptomatic hypertension, Patient very adamant to have blood drawn. -Labs no acute changes or abnormalities noted -dispo home w/ return precautions and follow-up with her kineseologist. Laboratory Tests Test 09/10/19 21:01 White Blood Count 5.2 K/UL (4.8-10.8) Red Blood Count 5.30 M/UL (4.20-5.40) Hemoglobin 15.5 G/DL (12.0-16.0) Hematocrit 44.5 % (37.0-47.0) Mean Corpuscular Volume 84 FL (80-99) Mean Corpuscular Hemoglobin 29.2 PG (27.0-31.0) Mean Corpuscular Hemoglobin Concent 34.8 G/DL (32.0-36.0) Red Cell Distribution Width 10.0 % (11.6-14.8) L Platelet Count 217 K/UL (150-450) Mean Platelet Volume 6.1 FL (6.5-10.1) L Neutrophils (%) (Auto) 64.3 % (45.0-75.0) Lymphocytes (%) (Auto) 26.3 % (20.0-45.0) Monocytes (%) (Auto) 7.2 % (1.0-10.0) Eosinophils (%) (Auto) 1.4 % (0.0-3.0) Basophils (%) (Auto) 0.9 % (0.0-2.0) Sodium Level 143 MMOL/L (136-145) Potassium Level 3.7 MMOL/L (3.5-5.1) Chloride Level 107 MMOL/L (98-107) Carbon Dioxide Level 29 MMOL/L (21-32) Anion Gap 7 mmol/L (5-15) Blood Urea Nitrogen 15 mg/dL (7-18) Creatinine 0.9 MG/DL (0.55-1.30) Estimate Glomerular Filtration Rate > 60 mL/min (>60) Glucose Level 91 MG/DL (74-106) Calcium Level 9.3 MG/DL (8.5-10.1) Total Bilirubin 0.3 MG/DL (0.2-1.0) Aspartate Amino Transferase (AST) 20 U/L (15-37) Alanine Aminotransferase (ALT) 35 U/L (12-78) Alkaline Phosphatase 105 U/L (46-116) Troponin I 0.000 ng/mL (0.000-0.056) Total Protein 7.3 G/DL (6.4-8.2) Albumin 4.0 G/DL (3.4-5.0) Globulin 3.3 g/dL Albumin/Globulin Ratio 1.2 (1.0-2.7) Lipase 116 U/L (73-393) Thyroid Stimulating Hormone (TSH) 0.257 uiU/mL (0.358-3.740) Free Thyroxine 1.22 NG/DL (0.76-1.46) Free Triiodothyronine 2.6 pg/mL (2.3-4.2) EKG Diagnostic Results EKG Time: 21:34 EP Interpretation: sinus bradycardia, rate 56, qtc 449, no acute st elevations , normal axis Last Vital Signs Date Time Temp Pulse Resp B/P (MAP) Pulse Ox O2 Delivery O2 Flow Rate FiO2 09/10/19 20:16 98.2 71 17 143/91 (108) 99 Room Air Disposition: HOME, SELF-CARE Condition: Stable Referrals: [facility] Patient Instructions: Hypertension, [id number] Additional Instructions: The patient was provided with discharge instructions, notified to follow-up with a primary care doctor and or specialist in the next 24-48 hours, and to return to the ED if they have worsening of their symptoms. Please note that this report is being documented using [employer] technology. This can lead to erroneous entry secondary to incorrect interpretation by the dictating instrument. Dave Penny MD Sep 10, 2019 21:15
[2019-09-10 21:41] LABS: BASOPHILS % (AUTO) 0.9 % (0.0-2.0); EOSINOPHILS % (AUTO) 1.4 % (0.0-3.0); HEMATOCRIT 44.5 % (37.0-47.0); HEMOGLOBIN 15.5 G/DL (12.0-16.0); LYMPHOCYTES % (AUTO) 26.3 % (20.0-45.0); MEAN CORPUSCULAR VOLUME 84 FL (80-99); MONOCYTES % (AUTO) 7.2 % (1.0-10.0); NEUTROPHILS % (AUTO) 64.3 % (45.0-75.0); PLATELET COUNT 217 K/UL (150-450); WHITE BLOOD COUNT 5.2 K/UL (4.8-10.8)
[2019-09-10] MEDS ORDERED: Metoclopramide 10mg/2ml Inj ONE (21:46)
[2019-09-10] MEDS ORDERED: DiphenhydrAMINE 50mg/ml Inj ONE (21:46)
[2019-09-10 21:47] LABS: ANION GAP 7 mmol/L (5-15); BLOOD UREA NITROGEN 15 mg/dL (7-18); CALCIUM 9.3 MG/DL (8.5-10.1); CARBON DIOXIDE 29 MMOL/L (21-32); CHLORIDE 107 MMOL/L (98-107); CREATININE 0.9 MG/DL (0.55-1.30); POTASSIUM 3.7 MMOL/L (3.5-5.1); SODIUM 143 MMOL/L (136-145)
[2019-09-10 22:00] VITALS: BP 124/76
[2019-09-10 22:02] LABS: ALANINE AMINOTRANSFERASE 35 U/L (12-78); ALBUMIN/GLOBULIN RATIO 1.2 (1.0-2.7); ALKALINE PHOSPHATASE 105 U/L (46-116); ASPARTATE AMINO TRANSFERASE 20 U/L (15-37); BILIRUBIN,TOTAL 0.3 MG/DL (0.2-1.0)
--- NOTE | 2019-09-10 22:10 | NUR ---
ER DISCHARGE NOTE: Patient is cleared to be discharged per ERMD, pt is aox4, on room air, with stable vital signs. pt was given dc and prescription instructions, pt was able to verbalize understanding, pt id band and iv site removed without complications. pt is able to ambulate with steady gait. pt took all belongings.
--- NOTE | 2019-09-12 17:19 | Cardiology Report ---
APPROVED REPORT EKG Measurement Heart [id number] Sinus bradycardia Otherwise normal ECG
== END 2019-09-10 22:10 | disposition home or self-care (01) ==
LOC: EMR 20:45
DX: I10 Essential (primary) hypertension (principal); E03.9 Hypothyroidism, unspecified; R00.1 Bradycardia, unspecified
CPT/HCPCS: 36415; 80053; 83690; 84439; 84443; 84481; 84484; 85025; 93005; 96374; 96375; 99284; J0360; J1200; J2765

== ENCOUNTER 2019-10-02 21:10 | Emergency (ER) | payer BC ==
[~2019-10-02] VITALS: Ht 165.1 cm; Wt 72.6 kg
[~2019-10-02 21:10] MED LIST changes: +AMLODIPINE BESY10 MG ORAL
--- NOTE | 2019-10-02 21:30 | NUR ---
ED Nurse Note: Recieved pt from home, here with c/o feeling syncopal after starting new med and severe back pain at 10, pt started higher dose of b/p med and water pill, pt denies cp, sob, and also c/o nausea, pt placed on cardiac monitoring, iv line placed and labs done, will medicate as ordered and continue to closely monitor.
--- NOTE | 2019-10-02 21:31 | Emergency Room Report ---
History of Present Illness General Chief Complaint: Back Pain-No Injury Source: Patient Present Illness HPI This is a 59-year-old female with a history of high blood pressure. She presents with chief complaint of feeling and lightheadedness. 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 He also added combination of hydrochlorothiazide. She said this morning pressure was 120/83. She took her losartan and she went to the pharmacy. She then felt lightheaded and dizzy. She said she was sweating. She felt like she cannot pass out. She sat down and got better. She is been feeling nauseous today. No appetite. No fever chills walking. Better with rest. She said she took a full dose of metoprolol tonight. Usually only take half a dose to bring her blood pressure from systolic 1 30-1 03. She denies any chest pain. Allergies: Coded Allergies: No Known Allergies (Verified Allergy, Unknown, 07/19/10) Patient History Past Medical History: see triage record, old chart reviewed, HTN Past Surgical History: none Pertinent Family History: none Social History: Denies: smoking Now: No Immunizations: other Reviewed Nursing Documentation: PMH: Agreed; PSxH: Agreed Nursing Documentation-PMH Past Medical History: No History, Except For Hx Cardiac Problems: No Hx Hypertension: Yes Hx Pacemaker: No Hx Asthma: No Hx COPD: No Hx Cancer: No Hx Gastrointestinal Problems: No Hx Dialysis: No Hx Neurological Problems: No Hx Cerebrovascular Accident: No Hx Seizures: No Review of Systems Constitutional: Reports: weakness Eye: Denies: eye pain, blurred vision ENT: Denies: ear pain, nose congestion, throat swelling Respiratory: Denies: cough, shortness of breath Cardiovascular: Denies: chest pain, palpitations Gastrointestinal: Denies: abdominal pain, diarrhea, nausea, vomiting Musculoskeletal: Denies: back pain, joint pain Skin: Denies: rash Neurological: Reports: dizziness; Denies: headache, numbness Endocrine: Denies: increased thirst, increased urine Hematologic/Lymphatic: Denies: easy bruising All Other Systems: negative except mentioned in HPI Physical Exam Vital Signs Date Time Temp Pulse Resp B/P (MAP) Pulse Ox O2 Delivery O2 Flow Rate FiO2 10/02/19 21:20 98.8 92 19 165/103 (123) 99 Room Air Vitals with high blood pressure Sp02 EP Interpretation: reviewed, normal General Appearance: well appearing, no apparent distress, alert Head: normocephalic, atraumatic Eyes: bilateral eye PERRL, bilateral eye EOMI ENT: hearing grossly normal, normal pharynx Neck: full range of motion, supple, no meningismus Respiratory: chest non-tender, lungs clear, normal breath sounds Cardiovascular #1: regular rate, rhythm, no murmur Gastrointestinal: normal bowel sounds, non tender, no mass, no organomegaly, no bruit, non-distended Musculoskeletal: back normal, gait/station normal, normal range of motion Neurologic: alert, oriented x3 Psychiatric: anxious Medical Decision Making Diagnostic Impression: Primary Impression: Hypertension Qualified Codes: I10 - Essential (primary) hypertension Additional Impression: Dizziness ER Course Patient presents with high blood pressure. I think is more anxiety related. Blood pressure is normalizing here. Heart rate down to the 60. Blood pressure systolic in the 120-130. Endorgan damage. No evidence of infection. Will discharge home with reassurance. Her dizziness may be secondary to orthostatic hypotension. EKG Diagnostic Results Rate: normal Rhythm: NSR ST Segments: no acute changes Rhythm Strip Diag. Results EP Interpretation: yes Rate: 62 Rhythm: NSR, no PVC's, no ectopy Last Vital Signs Date Time Temp Pulse Resp B/P (MAP) Pulse Ox O2 Delivery O2 Flow Rate FiO2 10/02/19 21:20 98.8 92 19 165/103 (123) 99 Room Air Status: improved Disposition: HOME, SELF-CARE Condition: Stable Additional Instructions: Follow up with your doctor in 7 days. If your pressure is less than 120 systolic, do not take your blood pressure medication. You may take half of your losartan if your blood pressures between 120-140. Return if worse. Rakesh Dia MD Oct 02, 2019 21:31
[2019-10-02] MEDS ORDERED: Ketorolac 30mg Inj IV ONE (21:45)
[2019-10-02 22:00] VITALS: BP 152/77
[2019-10-02 22:02] LABS: BASOPHILS % (AUTO) 1.2 % (0.0-2.0); EOSINOPHILS % (AUTO) 1.7 % (0.0-3.0); HEMOGLOBIN 14.6 G/DL (12.0-16.0); LYMPHOCYTES % (AUTO) 38.7 % (20.0-45.0); MEAN CORPUSCULAR VOLUME 83 FL (80-99); MONOCYTES % (AUTO) 7.7 % (1.0-10.0); NEUTROPHILS % (AUTO) 50.7 % (45.0-75.0); PLATELET COUNT 225 K/UL (150-450); RED BLOOD COUNT 5.07 M/UL (4.20-5.40); RED CELL DISTRIBUTION WIDTH 9.9 % (11.6-14.8); WHITE BLOOD COUNT 4.1 K/UL (4.8-10.8)
[2019-10-02 22:05] LABS: ANION GAP 8 mmol/L (5-15); BLOOD UREA NITROGEN 9 mg/dL (7-18); CALCIUM 9.1 MG/DL (8.5-10.1); CARBON DIOXIDE 29 MMOL/L (21-32); CHLORIDE 103 MMOL/L (98-107); CREATININE 0.8 MG/DL (0.55-1.30); POTASSIUM 3.2 MMOL/L (3.5-5.1); SODIUM 140 MMOL/L (136-145)
[2019-10-02 23:04] LABS: APPEARANCE,URINE CLEAR; BILIRUBIN, URINE NEGATIVE (NEGATIVE); COLOR,URINE PALE YELLOW; GLUCOSE, URINE (UA) NEGATIVE (NEGATIVE); KETONES,URINE NEGATIVE (NEGATIVE); LEUKOCYTE ESTERASE ,URINE NEGATIVE (NEGATIVE); NITRITE,URINE NEGATIVE (NEGATIVE); PH,URINE 7 (4.5-8.0); PROTEIN,URINE NEGATIVE (NEGATIVE); UROBILINOGEN,URINE NORMAL MG/DL (0.0-1.0)
[2019-10-02 23:05] VITALS: BP 148/76
[2019-10-02 23:19] VITALS: BP 152/77
--- NOTE | 2019-10-03 12:36 | Cardiology Report ---
APPROVED REPORT EKG Measurement Heart [id number] Normal sinus rhythm Normal ECG
== END 2019-10-02 23:22 | disposition home or self-care (01) ==
LOC: EMR 22:12
DX: R42 Dizziness and giddiness (principal); I10 Essential (primary) hypertension
CPT/HCPCS: 36415; 80048; 81001; 84484; 85025; 93005; 96361; 96374; 96375; 99284; J1885; J2405; J7030

== ENCOUNTER 2019-11-19 00:07 | Emergency (ER) | payer BC ==
[~2019-11-19] VITALS: Ht 157.5 cm; Wt 73.5 kg
--- NOTE | 2019-11-19 00:23 | NUR ---
ED Nurse Note: pt presents to ED c/o HTN, dizziness and a 7/10 BECK that is getting worse. per pt, her BP was in the 160's at home, she took her BP meds, and it went down to 120's for a couple hours and then was elevated again. she took her losartan 100 mg with 25 mg HCT which is a new medication she was given at her pharmacy.
[2019-11-19 00:36] VITALS: BP 182/106
[2019-11-19] MEDS ORDERED: Ketorolac 30mg Inj IV ONE (00:45)
[2019-11-19 00:59] LABS: BASOPHILS % (AUTO) 1.2 % (0.0-2.0); EOSINOPHILS % (AUTO) 1.4 % (0.0-3.0); HEMOGLOBIN 15.9 G/DL (12.0-16.0); LYMPHOCYTES % (AUTO) 29.7 % (20.0-45.0); MEAN CORPUSCULAR VOLUME 84 FL (80-99); MONOCYTES % (AUTO) 6.8 % (1.0-10.0); NEUTROPHILS % (AUTO) 60.9 % (45.0-75.0); PLATELET COUNT 282 K/UL (150-450); RED BLOOD COUNT 5.63 M/UL (4.20-5.40); RED CELL DISTRIBUTION WIDTH 11.6 % (11.6-14.8); WHITE BLOOD COUNT 7.9 K/UL (4.8-10.8)
[2019-11-19 01:13] LABS: ANION GAP 10 mmol/L (5-15); BLOOD UREA NITROGEN 13 mg/dL (7-18); CALCIUM 9.6 MG/DL (8.5-10.1); CARBON DIOXIDE 30 MMOL/L (21-32); CHLORIDE 97 MMOL/L (98-107); CREATININE 0.8 MG/DL (0.55-1.30); POTASSIUM 3.2 MMOL/L (3.5-5.1); SODIUM 137 MMOL/L (136-145)
[2019-11-19 01:18] LABS: ALANINE AMINOTRANSFERASE 32 U/L (12-78); ALBUMIN 4.5 G/DL (3.4-5.0); ALBUMIN/GLOBULIN RATIO 1.3 (1.0-2.7); ALKALINE PHOSPHATASE 103 U/L (46-116); ASPARTATE AMINO TRANSFERASE 21 U/L (15-37); BILIRUBIN,TOTAL 0.7 MG/DL (0.2-1.0)
--- NOTE | 2019-11-19 02:22 | Emergency Room Report ---
History of Present Illness General Chief Complaint: Hypertension Source: Patient Present Illness HPI 59-year-old female with history of hyperthyroid and thyroidectomy who presents with elevated blood pressure. Patient reported blood pressure 180 systolic at home at around 5 PM, she took losartan/HCTZ 100/25 mg at 5:30 PM. Blood pressure minimally improved therefore patient took her metoprolol at 6:30 PM and again at 8:30 PM. She reports symptoms of nausea and headache at this time. She describes headache as 7 out of 10, all over her head. She denies any blurry vision, chest pain, shortness of breath, vomiting, abdominal or back pain Allergies: Coded Allergies: No Known Allergies (Verified , 11/20/19) Patient History Last Menstrual Period: NA Now: No Reviewed Nursing Documentation: PMH: Agreed; PSxH: Agreed Nursing Documentation-PMH Past Medical History: No History, Except For Hx Cardiac Problems: No Hx Hypertension: Yes Hx Pacemaker: No Hx Asthma: No Hx COPD: No Hx Cancer: No Hx Gastrointestinal Problems: No Hx Dialysis: No Hx Neurological Problems: No Hx Cerebrovascular Accident: No Hx Seizures: No Review of Systems Constitutional: Denies: chills, fever Respiratory: Denies: cough, shortness of breath Cardiovascular: Denies: chest pain, palpitations Gastrointestinal: Reports: nausea; Denies: diarrhea, vomiting Genitourinary: Denies: hematuria, pain Musculoskeletal: Denies: joint swelling Skin: Denies: rash, lesions Neurological: Reports: headache; Denies: dizziness Physical Exam Vital Signs Date Time Temp Pulse Resp B/P (MAP) Pulse Ox O2 Delivery O2 Flow Rate FiO2 11/19/19 00:13 97.9 71 18 182/106 (131) 97 Room Air Sp02 EP Interpretation: reviewed General Appearance: well appearing, no apparent distress, non-toxic Head: normocephalic, atraumatic Eyes: bilateral eye normal inspection ENT: hearing grossly normal, EOM grossly intact, moist mucus membranes Neck: supple Respiratory: lungs clear, normal breath sounds, no respiratory distress, speaking full sentences Cardiovascular #1: regular rate, rhythm, normal capillary refill Cardiovascular #2: 2+ radial (R), 2+ radial (L) Gastrointestinal: soft, non-distended Rectal: deferred Musculoskeletal: moves extm spontaneously, no lower extremity edema Neurologic: grossly normal Psychiatric: mood/affect normal Skin: warm/dry, normal turgor Medical Decision Making Diagnostic Impression: Primary Impression: Uncontrolled hypertension ER Course 59-year-old female presenting with hypertension status post taking medications at home with minimal improvement and associated headache and nausea. Patient found to have improved blood pressure at this time. Exam within normal limits. Differential includes hypertensive emergency, hypertensive urgency, uncontrolled hypertension Will perform lab testing, EKG and reevaluate. Laboratory Tests Test 11/19/19 00:42 White Blood Count 7.9 K/UL (4.8-10.8) Red Blood Count 5.63 M/UL (4.20-5.40) H Hemoglobin 15.9 G/DL (12.0-16.0) Hematocrit 47.0 % (37.0-47.0) Mean Corpuscular Volume 84 FL (80-99) Mean Corpuscular Hemoglobin 28.2 PG (27.0-31.0) Mean Corpuscular Hemoglobin Concent 33.8 G/DL (32.0-36.0) Red Cell Distribution Width 11.6 % (11.6-14.8) Platelet Count 282 K/UL (150-450) Mean Platelet Volume 6.1 FL (6.5-10.1) L Neutrophils (%) (Auto) 60.9 % (45.0-75.0) Lymphocytes (%) (Auto) 29.7 % (20.0-45.0) Monocytes (%) (Auto) 6.8 % (1.0-10.0) Eosinophils (%) (Auto) 1.4 % (0.0-3.0) Basophils (%) (Auto) 1.2 % (0.0-2.0) Sodium Level 137 MMOL/L (136-145) Potassium Level 3.2 MMOL/L (3.5-5.1) L Chloride Level 97 MMOL/L (98-107) L Carbon Dioxide Level 30 MMOL/L (21-32) Anion Gap 10 mmol/L (5-15) Blood Urea Nitrogen 13 mg/dL (7-18) Creatinine 0.8 MG/DL (0.55-1.30) Estimate Glomerular Filtration Rate > 60 mL/min (>60) Glucose Level 95 MG/DL (74-106) Calcium Level 9.6 MG/DL (8.5-10.1) Total Bilirubin 0.7 MG/DL (0.2-1.0) Aspartate Amino Transferase (AST) 21 U/L (15-37) Alanine Aminotransferase (ALT) 32 U/L (12-78) Alkaline Phosphatase 103 U/L (46-116) Troponin I 0.000 ng/mL (0.000-0.056) Total Protein 7.9 G/DL (6.4-8.2) Albumin 4.5 G/DL (3.4-5.0) Globulin 3.4 g/dL Albumin/Globulin Ratio 1.3 (1.0-2.7) Lab Results Impression CBC within normal limits, CMP shows mild hypokalemia hypochloremia otherwise within normal limits, negative troponin Last Vital Signs Date Time Temp Pulse Resp B/P (MAP) Pulse Ox O2 Delivery O2 Flow Rate FiO2 11/19/19 01:16 97.9 11/19/19 00:36 71 18 Room Air 11/19/19 00:36 182/106 97 Last Vital Signs Date Time Temp Pulse Resp B/P (MAP) Pulse Ox O2 Delivery O2 Flow Rate FiO2 11/19/19 02:40 97.9 83 18 130/82 97 Room Air Reevaluation Impression Patient's blood pressure improved patient symptoms improved as blood pressure improved. Patient's lab testing reviewed with him to be within normal limits. Patient stable for outpatient follow-up and discharge. Patient recommended to see her primary care doctor for hypertensive management. Patient understands warning signs and when to return to emergency room.. Disposition: HOME, SELF-CARE Condition: Stable Referrals: NON PHYSICIAN (PCP) Patient Instructions: Hypertension Additional Instructions: See your primary care doctor and partner cco for reevaluation Serafin Paige M.D. Nov 19, 2019 02:22
[2019-11-19 02:40] VITALS: BP 130/82
[2019-11-20] MEDS ORDERED: ZOFRAN4 MG ORAL (03:55)
== END 2019-11-19 02:40 | disposition home or self-care (01) ==
LOC: EMR 01:21
DX: I10 Essential (primary) hypertension (principal)
CPT/HCPCS: 36415; 71045; 80053; 84484; 85025; 93005; 96374; 99284; J1885

== ENCOUNTER 2019-11-20 02:14 | Emergency (ER) | payer BC ==
[~2019-11-20] VITALS: Ht 157.5 cm; Wt 72.6 kg
[2019-11-20 02:38] VITALS: BP 175/102
--- NOTE | 2019-11-20 02:59 | Emergency Room Report ---
History of Present Illness General Chief Complaint: Hypertension Source: Patient Present Illness HPI 59-year-old female with history of high blood pressure. He is taking losartan hydrochlorothiazide 100 mg. Also on metoprolol. 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 She presents with chief complaint of high blood pressure. She been high all day. Go up to 170 systolic. She has been complaining of feeling nauseous and burping. No vomiting. No diarrhea. Was here yesterday. Blood work was normal. Patient denied chest pain. No shortness of breath. No diaphoresis. No headache. Allergies: Coded Allergies: No Known Allergies (Verified , 11/20/19) Patient History Past Medical History: see triage record, old chart reviewed, HTN Past Surgical History: other Pertinent Family History: none Social History: Denies: smoking Now: No Immunizations: other Reviewed Nursing Documentation: PMH: Agreed; PSxH: Agreed Nursing Documentation-PMH Hx Cardiac Problems: No Hx Hypertension: Yes Hx Pacemaker: No Hx Asthma: No Hx COPD: No Hx Cancer: No Hx Gastrointestinal Problems: No Hx Dialysis: No Hx Neurological Problems: No Hx Cerebrovascular Accident: No Hx Seizures: No Review of Systems Eye: Denies: eye pain, blurred vision ENT: Denies: ear pain, nose congestion, throat swelling Respiratory: Denies: cough, shortness of breath Cardiovascular: Denies: chest pain, palpitations Gastrointestinal: Denies: abdominal pain, diarrhea, nausea, vomiting Musculoskeletal: Denies: back pain, joint pain Skin: Denies: rash Neurological: Denies: headache, numbness Endocrine: Denies: increased thirst, increased urine Hematologic/Lymphatic: Denies: easy bruising All Other Systems: negative except mentioned in HPI Physical Exam Vital Signs Date Time Temp Pulse Resp B/P (MAP) Pulse Ox O2 Delivery O2 Flow Rate FiO2 11/20/19 02:15 98.2 70 18 156/99 (118) 99 Room Air Vitals with high blood pressure Sp02 EP Interpretation: reviewed, normal General Appearance: well appearing, no apparent distress, alert Head: normocephalic, atraumatic Eyes: bilateral eye PERRL, bilateral eye EOMI ENT: hearing grossly normal, normal pharynx Neck: full range of motion, supple, no meningismus Respiratory: chest non-tender, lungs clear, normal breath sounds Cardiovascular #1: regular rate, rhythm, no murmur Gastrointestinal: normal bowel sounds, non tender, no mass, no organomegaly, no bruit, non-distended Musculoskeletal: back normal, normal range of motion, gait/station normal Neurologic: motor strength/tone normal Psychiatric: anxious Medical Decision Making Diagnostic Impression: Primary Impression: Hypertension Qualified Codes: I10 - Essential (primary) hypertension ER Course Patient presents with high blood pressure. No evidence of endorgan damage. No evidence of ACS, PE, dissection, TIA, CVA to name a few. Last Vital Signs Date Time Temp Pulse Resp B/P (MAP) Pulse Ox O2 Delivery O2 Flow Rate FiO2 11/20/19 02:43 67 18 Room Air 11/20/19 02:38 98.2 175/102 99 Status: improved Disposition: HOME, SELF-CARE Condition: Stable Referrals: NON PHYSICIAN (PCP) Additional Instructions: Use your clonidine patch. Follow-up with your doctor in 7 days for recheck. Return if worse. Rakesh Dia MD Nov 20, 2019 02:59
[2019-11-20 03:00] LABS: APPEARANCE,URINE CLEAR; BILIRUBIN, URINE NEGATIVE (NEGATIVE); COLOR,URINE PALE YELLOW; GLUCOSE, URINE (UA) NEGATIVE (NEGATIVE); KETONES,URINE NEGATIVE (NEGATIVE); LEUKOCYTE ESTERASE ,URINE NEGATIVE (NEGATIVE); NITRITE,URINE NEGATIVE (NEGATIVE); PH,URINE 7 (4.5-8.0); PROTEIN,URINE NEGATIVE (NEGATIVE); UROBILINOGEN,URINE NORMAL MG/DL (0.0-1.0)
[2019-11-20 03:45] VITALS: BP 150/86
[2019-11-20] MEDS ORDERED: ZOFRAN4 MG ORAL (03:55)
[2019-11-20 04:00] VITALS: BP 150/86
== END 2019-11-20 04:00 | disposition home or self-care (01) ==
LOC: EMR 02:56
DX: I10 Essential (primary) hypertension (principal)
CPT/HCPCS: 81003; 96374; 96375; 96376; 99284; J0360; J2405